=== PATIENT | female | born 1935 | race Caucasian/White ===

== ENCOUNTER 2020-06-10 13:18 | Outpatient (CLI) | payer MEDICARE, SELFPAY | END 2020-06-10 13:19 | disposition home or self-care (01) | LOC: ANHCOVIDVC 13:18 | PROVIDERS: PCP Family Medicine | DX: Z23 Encounter for immunization (principal) | CPT/HCPCS: 0001A; 91300 ==

== ENCOUNTER 2020-07-01 13:08 | Outpatient (CLI) | payer MEDICARE, SELFPAY | END 2020-07-01 13:09 | disposition home or self-care (01) | LOC: ANHCOVIDVC 13:08 | PROVIDERS: PCP Family Medicine | DX: Z23 Encounter for immunization (principal) | CPT/HCPCS: 0002A; 91300 ==

== ENCOUNTER 2023-05-16 11:38 | Inpatient (IN) | payer MEDICARE, SELFPAY ==
[2023-05-16] VITALS (9 sets, daily range): BP systolic 137–161; BP diastolic 78–108; PULSE 77–118; RESP 18–28; TEMP 36.4–36.6; O2SAT 93–100; BMI 18.0
--- NOTE | ~2023-05-16 | CT_ITS ---
EXAMINATION: CT chest abdomen pelvis w con DATE: 05/16/2023 13:48 INDICATION: Elevated liver enzymes TECHNIQUE: Transaxial computed tomographic images of the chest, abdomen, and pelvis were obtained aft er the administration of 100 cc of Omnipaque 350 intravenous contrast. The dose-length product (DLP) was 266.67 mGy-cm. Automated exposure control and iterative reconstruction technique were employed. COMPARISON: 11/25/2010 FINDINGS: CHEST CT: There are small left and pjicf-co-wazoswyr size right pleural effusions with mild passive dependent a telectasis. Although not specifically timed for evaluation of the pulmonary arteries, the pulmonary a rteries appear to be well-opacified. There is smooth interlobular septal thickening in the lung apice s. Cardiomegaly is noted. There is no pneumothorax. There are no pathologically enlarged thoracic lym ph nodes. There is moderate thoracic spondylosis. ABDOMEN/PELVIS CT: The liver, spleen, and adrenal glands are normal. There is chronic mild enlargement of the pancreatic duct and common bile duct and chronic mild distention of the gallbladder.. There is moderate atrophy of the kidneys which contain multiple small cysts. No pathologically enlarged abdominal or pelvic ly mph nodes are identified. No free intraperitoneal gas or evidence of bowel obstruction. There is high attenuation material in multiple segments of large bowel, felt to represent ingested contents rather than contrast extravasation. There is thoracolumbar dextroscoliosis and severe spondylosis. IMPRESSION: 1. Small left and sdbrm-ms-brkbibjq size right pleural effusions with mild passive atelectasis. 2. Cardiomegaly with mild pulmonary edema. 3. No definite acute findings of the abdomen or pelvis. Reviewed, dictated and finalized at location A. OPERATOR SEMICONDUCTOR WAFERS IMPRESSION: 1. Small left and caifo-fw-fkdslrth size right pleural effusions with mild pass cleo atelectasis. 2. Cardiomegaly with mild pulmonary edema. 3. No definite acute findings of the abdomen or pelvis.
--- NOTE | ~2023-05-16 | XR_ITS ---
EXAMINATION: XR chest 1V INDICATION: Tachycardia TECHNIQUE: AP view of the chest is obtained. COMPARISON: None available FINDINGS: There are airspace opacities of the lung bases. Small pleural effusions are present. There is no pneumothorax. The heart size is upper limits of normal for technique. There is calcification of the mitral annulus. IMPRESSION: 1. Bibasilar airspace opacities, consistent with atelectasis versus pneumonia. 2. Small pleural effusions. Reviewed, dictated and finalized at location A. REMOVER
--- NOTE | ~2023-05-16 | CT_ITS ---
EXAMINATION: CT brain wo con INDICATION: Head injury COMPARISON: 02/13/2012 TECHNIQUE: Standard unenhanced head CT. The dose-length product (DLP) was 605.33 mGy-cm. The mA was a djusted according to patient size. Iterative reconstruction technique was employed. FINDINGS: No acute intraparenchymal hemorrhage. No evidence of mass lesion. No evidence of acute infa rction. There is moderate periventricular and subcortical hypodensity probably related to small vesse l ischemic disease. There is moderate prominence of the sulci and ventricles related to cerebral atro phy. Intracranial calcified cerebral atherosclerosis is noted. No extra-axial collections. No mass ef fect or midline shift. The orbits and soft tissues are unremarkable. The visualized sinuses and masto id air cells are well aerated. IMPRESSION: 1. No acute intracranial abnormality. 2. Age related findings. Reviewed, dictated and finalized at location A. PER LOADER OPERATOR
--- NOTE | 2023-05-16 11:43 | ECG_ITS ---
Measurements Intervals [place] Rate: 76 P: 55 OK: 164 QRS: 26 QRSD: 109 T: 105 QT: 403 QTc: 453 Interpretive Statements SINUS RHYTHM WITH FREQUENT SUPRAVENTRICULAR PREMATURE COMPLEXES NONSPECIFIC INTRAVENTRICULAR CONDUCTION DELAY NONSPECIFIC ST AND T-WAVE ABNORMALITY ABNORMAL ECG NO PREVIOUS ECG AVAILABLE FOR COMPARISON Electronically Signed On 05-17-2023 7:24:14 FITNESS TEACHER by Mio Jackson M.D.
--- NOTE | 2023-05-16 11:46 | ED.ARRPALP ---
HPI - Arrhythmia/Palpitations General Chief Complaint: Arrhythmia/Palpitations Stated Complaint: palpatations History of Present Illness HPI narrative: 87-year-old female presenting to emergency department for evaluation of heart palpitations. Patient is scheduled to have follow-up with Cardiology on Wednesday. Patient states she has been have intermittent issues at nighttime when she lays down she feels she is having a rapid heart rate. Patient reports over last 2 nights she has had more severe symptoms and has been very restless. Upon arrival emergency department patient denies any chest pain or shortness of breath. Patient denies any nausea vomiting or diarrhea. Patient denies any recent illnesses and denies any pain with urination. Related Data Home Medications Medication Instructions Recorded Confirmed timolol maleate 0.5 % eye drops 1 drp ophthalmic (eye) BID 08/12/20 05/16/23 loperamide 2 mg tablet 2 mg PO Q6H PRN Diarrhea 04/16/23 05/16/23 (Anti-Diarrheal (loperamide)) acetaminophen 500 mg tablet 500 mg PO Q6H PRN pain 05/16/23 05/16/23 lisinopril 10 1 tablet PO DAILY 05/16/23 05/16/23 mg-hydrochlorothiazide 12.5 mg tablet multivitamin with minerals-folic 1 tablet PO DAILY 05/16/23 05/16/23 acid 0.4 mg tablet Allergies Allergy/AdvReac Type Severity Reaction Status Date / Time No Known Allergies Allergy Verified 04/16/23 13:14 Review of Systems Review of Systems: All systems reviewed & are unremarkable except as noted in HPI and below PMFSH Family History Family History Mother Diabetes mellitus, Onset Age: 72 Hypertension, Onset Age: 72 Family history of cardiovascular disease, Onset Age: 72 Father Hypertension, Onset Age: 92 Family history of Parkinson's disease, Onset Age: 92 Social History Social History (Updated 04/16/23 @ 13:23 by Rosi Castrejon MA) Smoking packs per day: 1.5 Smoking cigarettes per day: 30.0 Years smoked: 13 Smoking pack-years: 19.50 Smoking status: Former smoker Smoking end date: 04/12/1966 Alcohol intake: never Substance use: never Substance use type: does not use Do You Feel Safe in your Home?: Yes Lack of Transportation: No Lack of Food: Never True Current Housing: I Have Housing Concerned About Future Housing: No Difficulty Paying Gas/Electric Bills: No Difficulty Paying for Meds: No Currently Unemployed: No Education: High School Diploma/GED Difficulty w/ Childcare or Family Care: No Living arrangements: with family Spiritual care concerns: No Exam Narrative: APPEARANCE: Well appearing, no pain, no distress, well-nourished. HEAD: normocephalic, atraumatic. EYES: PERRLA/EOMI, conjunctivae clear. NOSE: Normal no drainage NECK: Supple. No adenopathy, no masses. RESPIRATORY: Airway patent, respirations nonlabored. Clear to auscultation bilaterally, no rales, rhonchi, wheezing. CARDIOVASCULAR: Regular rate and rhythm without murmurs rubs or gallops. ABDOMINAL: Soft, nontender, nondistended, normal bowel sounds MUSCULOSKELETAL: Moves all extremities. Strength/ROM intact, No edema, No calf tenderness. NEURO: Alert. Cranial nerves II through XII intact. Grossly intact SKIN: Warm, dry. Normal Color Course Course Emergency Course: 87-year-old female presenting emergency department for evaluation of feeling restless at night and difficulty sleeping. Patient denies any chest pain. Patient was afebrile with no leukocytosis and hemoglobin of 11.8. Patient's initial troponin was elevated at 0.061. Patient's BNP was greater than 30,000. Patient was negative for influenza RSV and for COVID. Patient did report a head injury last week and had CT was negative. Chest x-ray showed bibasilar airspace opacities and some small pleural effusions. CT chest abdomen pelvis was ordered and does show small left and small to moderate righ
[2023-05-16 12:05] LABS: Basophils Absolute Auto 0.1 K/mm3 (0.0-0.1); Basophils Percent Auto 1.3 % (0.2-1.2); Eosinophils Absolute Auto 0.1 K/mm3 (0-0.3); Eosinophils Percent Auto 0.9 % (0-4.4); Hematocrit 37.5 % (37.0-47.0); Hemoglobin 11.8 g/dL (12.0-15.0); Immature Granulocyte Absolute 0.02 K/mm3 (0.00-0.031); Immature Granulocyte Percent A 0.2 % (0-0.5); Lymphocytes Absolute Auto 1.27 K/mm3 (0.9-3.2); Lymphocytes Percent Auto 13.7 % (18.3-44.2); Mean Corpuscular HGB Conc 31.5 g/dl (32-36); Mean Corpuscular Hemoglobin 31.1 pg (26-34); Mean Corpuscular Volume 98.9 fl (80-100); Mean Platelet Volume 9.8 fl (7.4-10.4); Monocytes Absolute Auto 0.8 K/mm3 (0.1-0.6); Monocytes Percent Auto 8.6 % (2.6-8.5); Neutrophils Percent Auto 75.3 % (45.5-73.1); Platelet Count Result 253 k/mm3 (150-375); Red Blood Count 3.79 M/mm3 (4.2-5.4); Red Cell Distribution Width 15.2 % (11.5-14.5); White Blood Count 9.3 K/mm3 (4.5-10.0)
[2023-05-16 12:16] LABS: INR 1.1; Prothrombin Time 14.6 Seconds (11.1-14.7)
[2023-05-16 12:17] LABS: Partial Thromboplastin Time 29.1 SECONDS (22.3-36.8)
[2023-05-16 12:28] LABS: NT Pro B Type Natriuretic Pept > 30000 pg/mL (19.9-100)
[2023-05-16 12:35] LABS: Alanine Aminotransferase 75 U/L (6-35); Albumin Level 4.3 g/dL (3.5-5.1); Alkaline Phosphatase 151 U/L (38-126); Anion Gap 12 mmol/L (8-16); Aspartate Amino Transferase 77 U/L (14-36); Bilirubin,Total 1.1 mg/dL (0.2-1.3); Blood Urea Nitrogen 33 mg/dL (7-17); Calcium 9.4 mg/dL (8.4-10.2); Carbon Dioxide 23 mmol/L (22-30); Chloride 107 mmol/L (98-107); Estimated Glomerular Filt Rate 52; Glucose 121 mg/dL (65-110); Magnesium 2.4 mg/dL (1.6-2.3); Potassium 3.9 mmol/L (3.4-5.0); Sodium 142 mmol/L (137-145)
[2023-05-16 12:43] LABS: Influenza A QL RT-PCR Negative (Negative); Influenza B QL RT-PCR Negative (Negative); RSV RNA, RT-PCR Negative (Negative); SARS-CoV-2 RNA PCR Negative (Negative)
[2023-05-16 12:46] LABS: Troponin I 0.061 ng/mL (0.000-0.034)
--- NOTE | 2023-05-16 12:50 | PC.NURSE ---
Pt requesting water. approved.
[2023-05-16] MEDS: FUROSEMIDE INJ 40 MG/4 ML VIAL IV PUSH (15:27)
--- NOTE | 2023-05-16 15:29 | ECG_ITS ---
Measurements Intervals [place] Rate: 103 P: 0 [place]: 160 QRS: 38 QRSD: 110 T: -26 QT: 364 QTc: 479 Interpretive Statements SINUS TACHYCARDIA MODERATE INTRAVENTRICULAR CONDUCTION DELAY [105+ ms QRS DURATION, 80+ ms Q/S IN V1/V2, NO Q AND 60+ ms R IN I/aVL/V5/V6] ST DEVIATION AND MODERATE T-WAVE ABNORMALITY, CONSIDER LATERAL ISCHEMIA [-0.1+ mV T WAVE IN I/aVL/V5/V6] ABNORMAL ECG COMPARED TO ECG 05/16/2023 11:46:25 HEART RATE IS INCREASED, NO OTHER CHANGE Electronically Signed On 05-17-2023 7:31:39 CALL CENTER AGENT by Mio Jackson M.D.
[2023-05-16 15:47] LABS: Troponin I 0.099 ng/mL (0.000-0.034)
--- NOTE | 2023-05-16 16:18 | ADMGEN ---
This patient, Celi Robison, was admitted to IMU Room 200-01. Patient/family oriented to hospital policies and general routines including ID bracelet, bed and alarms, visiting hours, pain management, procedures, bathroom and other care routines, personal items, smoking policy, room service/diet, and visiting hours. Information on how to activate the Rapid Response Team has been discussed. Patient/Family are encouraged to report perceived risks to care and to ask questions if they do not understand what they are told or what they should do.
--- NOTE | 2023-05-16 18:16 | PM.IMHP ---
H&P: HPI History of Present Illness Date/Time: 05/16/23 18:16 Chief Complaint: Palpitations Narrative: 87 y/o F presents here with palpitations with PMH anxiety, glaucoma, no formal diagnosis of IBS but has chronic diarrhea, CKD, HTN, and HLD. Patient presented here with palpitations that have been intermittent/worse over the last 2 days. Has been present for the past few months. Exacerbated by laying flat. Associated restlessness and shortness of breath with palpitations. Denies any recent illnesses, N/V/D, no dysuria, no cough, syncope, CP or SOB. Does report chronic diarrhea, takes loperamide p.r.n. b.i.d. Patient denies any new or increased leg swelling/edema. Only new medication is Cymbalta, patient was previously experiencing the palpitations prior to medication initiation. Denies any excessive alcohol or caffeine intake. Initial VS at presentation: 97.6 F, HR 98, RR 20, 93% on RA, 161/108. ED workup showed no leukocytosis, mild anemia with a hemoglobin of 11.8, creatinine 1.0 with BUN of 33 and GFR of 52, magnesium 2.4, LFTs mildly elevated, alk-phos 151, troponin 0.061, BNP >30,000, TSH 2.4, and viral panel negative for COVID/flu/RSV. CXR showed bibasilar airspace opacities and small pleural effusions. Head CT showed no acute intracranial abnormalities. CT of the abdomen pelvis showed small left and small to moderate right pleural effusions, cardiomegaly with mild pulmonary edema, no definitive acute findings in the abdomen/pelvis. EKG showed sinus rhythm with frequent supraventricular premature complexes, ST deviation, moderate T-wave abnormality. Review of Systems Review of Systems: All systems reviewed & are unremarkable except as noted in HPI and below [facility] Past Medical History Medical History (Updated 05/16/23 @ 20:23 by Camille Oneill APRN) Anxiety Chronic diarrhea Chronic kidney disease (CKD), stage III (moderate) Former smoker Glaucoma Hammertoe, bilateral Hyperlipidemia Hypertension Presence of intraocular lens prism lens Surgical History Surgical History History of cataract extraction History of dilation and curettage x2 History of lumbar surgery spinal stenosis correction History of tonsillectomy Family History Family History Mother Diabetes mellitus, Onset Age: 72 Hypertension, Onset Age: 72 Family history of cardiovascular disease, Onset Age: 72 Father Hypertension, Onset Age: 92 Family history of Parkinson's disease, Onset Age: 92 Social History Social History Smoking packs per day: 1.5 Smoking cigarettes per day: 30.0 Years smoked: 13 Smoking pack-years: 19.50 Smoking status: Former smoker Smoking end date: 04/12/1966 Alcohol intake: never Substance use: never Substance use type: does not use Do You Feel Safe in your Home?: Yes Lack of Transportation: No Lack of Food: Never True Current Housing: I Have Housing Concerned About Future Housing: No Difficulty Paying Gas/Electric Bills: No Difficulty Paying for Meds: No Currently Unemployed: No Education: High School Diploma/GED Difficulty w/ Childcare or Family Care: No Living arrangements: with family Spiritual care concerns: No Meds Home Medications and Allergies Home Medications Medication Instructions Recorded Confirmed Type timolol maleate 0.5 % eye drops 1 drp ophthalmic (eye) BID 08/12/20 05/16/23 History loperamide 2 mg tablet 2 mg PO Q6H PRN Diarrhea 04/16/23 05/16/23 History (Anti-Diarrheal (loperamide)) duloxetine 30 mg capsule,delayed 30 mg PO DAILY #90 caps 05/10/23 05/16/23 Rx release (Cymbalta) acetaminophen 500 mg tablet 500 mg PO Q6H PRN pain 05/16/23 05/16/23 History lisinopril 10 1 tablet PO DAILY 05/16/23 05/16/23 History mg-hydrochlorothiazide 12.5 mg
[2023-05-16 20:52] LABS: Iron 84 ug/dL (37-170)
[2023-05-16 21:01] LABS: Percent Iron Saturation 32 % (20-50)
[2023-05-16 21:08] LABS: Troponin I 0.158 ng/mL (0.000-0.034)
[2023-05-16 21:10] LABS: Vitamin D 25 Hydroxy 38.1 ng/mL
[2023-05-16 22:03] LABS: Folic Acid > 20.0 ng/mL (2.76->20)
[2023-05-16] MEDS: MELATONIN 3 MG TABLET PO (22:12)
[2023-05-16] MEDS: METOPROLOL TARTRATE 12.5 MG TABLET PO (22:13)
[2023-05-16] MEDS: TIMOLOL MALEATE 0.5% OP SOLN 5 ML BOTTLE 1 DROP EACH EYE (22:14)
[2023-05-17] VITALS (18 sets, daily range): BP systolic 118–144; BP diastolic 59–91; PULSE 65–106; RESP 16–28; TEMP 36.1–37.4; O2SAT 92–100; BMI 17.6
--- NOTE | 2023-05-17 | ECHO_ITS ---
Patient Info Name: Celi Robison Age: 87 years : 1935 Gender: Female Ht: 59 in Wt: 89 lbs BSA: 1.29 m2 HR: 72 bpm BP: 127 / 83 mmHg Heart Rhythm: Sinus Rhythm Technical Quality: Fair Exam Date: 05/17/2023 10:24 AM Exam Location: Echo Lab Exam Room: 200 Patient Status: Inpatient Admit Date: 05/16/2023 Staff Ordering Physician: Camille Oneill APRN Knife Operator: Gissell Lundberg RDCS Attending Provider: Adan Hamilton MD Referring Physician: Mai OG; Exam Type: CA echo dop color flow w con Study Info Indications - elevated bnp /pulm edema / cardiomyopathy Complete two-dimensional, color flow and Doppler transthoracic echocardiogram is performed with contrast to opacify the left ventricle and to improve the deliniation of the left ventricle endocardial borders. Summary 1. Definity contrast used to improve exam quality. 2. Moderate left ventricular enlargement with severe global hypokinesia. 3. Dilated left atrium. 4. Calcified mitral valve annulus with xdio-ch-bjginyjl MR. 5. Small amount of aortic regurgitation. 6. Tricuspid regurgitant velocity indicates evidence of severely elevated pulmonary artery pressure. Left Ventricle Left ventricular chamber dimension is moderately enlarged. Left ventricular systolic function is severely reduced, estimated at 20-25%. The left ventricular diastolic function is grade I diastolic dysfunction. Right Ventricle Right ventricular chamber dimension is normal. Left Atria Left atrial chamber dimension is severely enlarged. Right Atria Right atrial chamber dimension is normal. Aortic Valve The aortic valve is trileaflet. There is mild aortic valve sclerosis. There is mild aortic valve regurgitation. Pulmonic Valve The pulmonic valve is normal. There is mild pulmonic regurgitation. Mitral Valve The mitral valve has normal leaflets. There is mild to moderate mitral valve regurgitation. The mitral valve annulus is moderately calcified. Tricuspid Valve The tricuspid valve leaflets are normal. There is mild tricuspid valve regurgitation. Severe pulmonary hypertension, estimated pulmonary arterial systolic pressure is 71 mmHg. Pericardium/Pleural The pericardium appears normal. Aorta The aortic root size at the sinus of Valsalva is normal. Left Ventricular Outflow Tract Name Value Normal LVOT 2D LVOT Diameter 2.01 cm LVOT Doppler LVOT Peak Gradient 3 mmHg LVOT Mean Gradient 1 mmHg LVOT VTI 16.05 cm LVOT VTI/AV VTI Ratio 0.74 LVOT Stroke Volume 51.02 ml LVOT CO 10.87 l/min LVOT CI 8.41 L/min/m2 Pulmonic Valve Name Value Normal PV Doppler PV Peak Gradient 1 mmHg Mitral Valve Name
[2023-05-17 04:41] LABS: Hematocrit 35.2 % (37.0-47.0); Hemoglobin 11.3 g/dL (12.0-15.0); Mean Corpuscular HGB Conc 32.1 g/dl (32-36); Mean Corpuscular Hemoglobin 30.5 pg (26-34); Mean Corpuscular Volume 95.1 fl (80-100); Mean Platelet Volume 10.1 fl (7.4-10.4); Platelet Count Result 238 k/mm3 (150-375); Red Cell Distribution Width 15.1 % (11.5-14.5); White Blood Count 7.7 K/mm3 (4.5-10.0)
[2023-05-17 04:55] LABS: Alanine Aminotransferase 51 U/L (6-35); Albumin Level 3.7 g/dL (3.5-5.1); Alkaline Phosphatase 135 U/L (38-126); Anion Gap 11 mmol/L (8-16); Aspartate Amino Transferase 42 U/L (14-36); Bilirubin,Total 1.1 mg/dL (0.2-1.3); Blood Urea Nitrogen 37 mg/dL (7-17); Calcium 9.2 mg/dL (8.4-10.2); Carbon Dioxide 23 mmol/L (22-30); Chloride 102 mmol/L (98-107); Estimated Glomerular Filt Rate 47; Glucose 111 mg/dL (65-110); Magnesium 2.3 mg/dL (1.6-2.3); Potassium 3.4 mmol/L (3.4-5.0); Sodium 136 mmol/L (137-145)
[2023-05-17 05:35] LABS: Appearance Urine Clear (Clear); Bacteria Urine None Seen /hpf; Bilirubin Urine Negative (Negative); Blood Urine Negative (Negative); Color Urine Yellow (Yellow); Glucose Urine UA Negative (Negative); Ketones Urine Trace mg/dL (Negative); Leukocyte Esterase Ur Negative LEU/UL (Negative); Nitrate Urine Negative (Negative); Protein Urine Trace mg/dL (Negative); RBC Urine 0-2 /hpf (0-2); Specific Grav Ur 1.026 (1.001-1.035); Squamous Epithelial Cell Urine None seen /hpf (Few); Urobilinogen Urine 0.2 mg/dL (<2.0); WBC Urine 0-5 /hpf; pH Urine 5.5 (5.0-9.0)
[2023-05-17 05:36] LABS: Add Urine Microscopic? YES
[2023-05-17] MEDS: THERAPEUTIC MULTIVITAMINS/MINERALS TAB (*BKC) 1 TABLET PO (09:26)
[2023-05-17] MEDS: DULoxetine HCL 30 MG CAPSULE.DR PO (09:26)
[2023-05-17] MEDS: hydroCHLOROthiazide 12.5 MG CAPSULE PO (09:27)
[2023-05-17] MEDS: METOPROLOL TARTRATE 12.5 MG TABLET PO ×2 (09:27→20:52)
[2023-05-17] MEDS: lisinopriL 10 MG TABLET PO (09:27)
[2023-05-17] MEDS: ENOXAPARIN 30 MG/0.3 ML SYRINGE SUB-Q (09:27)
[2023-05-17] MEDS: TIMOLOL MALEATE 0.5% OP SOLN 5 ML BOTTLE 1 DROP EACH EYE ×2 (09:45→20:53)
[2023-05-17] MEDS: PERFLUTREN LIPID MICROSPHERES 1.5 ML VIAL DILUTED TO 10 ML TOTAL VOLUME IV PUSH (10:50)
--- NOTE | 2023-05-17 12:27 | IVDEFINITY ---
Prior to administration of IV Definity the patient was educated on the risks and benefits of the imaging enhancing agent including potential adverse side effects. The patient verbalized understanding. Allergies were verified. No exclusion criteria were identified and at least one of the following inclusion criteria were met: 1) physician request, 2) patient technically difficult to image (per the [place] [employer]chocardi[employer] guidelines of two or more segments not discernable within the apical view), or 3) questionable left ventricular function. ?
--- NOTE | 2023-05-17 13:43 | PM.CNCAR ---
Assessment and Plan Assessment and plan (1) CHF (congestive heart failure): Code(s): I50.9 - Heart failure, unspecified Status: Acute Assessment and Plan: Presents with 3 months of progressive dyspnea on exertion and orthopnea. Workup concerning for congestive heart failure with NTpro BNP >56123, CXR with pulmonary edema. She rec'd one dose of IV furosemide in the ED. Does not look significantly overloaded, will continue with p.o. furosemide Strict I&O CHF counseling supplemental O2 as needed Echo is pending. Further recommendations after review of this study. (2) Elevated troponin: Code(s): R79.89 - Other specified abnormal findings of blood chemistry Status: Acute Assessment and Plan: Troponin levels elevated at 0.061, 0.099, and 0.158. She denies any chest pain. Does not have many risk factors for CAD. Probably elevated secondary to CHF. Can pursue outpatient stress testing. (3) Shortness of breath on exertion: Code(s): R06.02 - Shortness of breath Status: Acute Assessment and Plan: Secondary to #1 (4) Hypertension: Code(s): I10 - Essential (primary) hypertension Status: Chronic Assessment and Plan: Currently at goal. History of Present Illness History of Present Illness Consult date/time: 05/17/23 13:43 Requesting physician: Camille Oneill APRN Consult reason: Other (Elevted BNP, pulmonary edema, cardiomegaly) Reason For Visit: CHF/Orthopnea/Pleural Effusion Narrative: Celi Robison is an 87 year old female with a history of glaucoma, hypertension, and osteoarthritis. This is a patient to comes to the hospital with a chief complaint of palpitations. She has been experiencing intermittent palpitations over the past several months. She states that the palpitations are more bothersome when she lays down. For about 3 months, she has also been experiencing dyspnea with exertion and orthopnea. Her telemetry demonstrates sinus rhythm with frequent PAC's. She states that when EMS connected her to their monitor she was told she was in atrial fibrillation. However, no atrial arrhythmias seen here on telemetry or ECG. She denies feeling any palpitations since hospital admission. She is currently free of any complaints and is lying comfortably in bed. Review of Systems Review of Systems: All systems reviewed & are unremarkable except as noted in HPI and below PMFSH Past Medical History Medical History Anxiety Chronic diarrhea Chronic kidney disease (CKD), stage III (moderate) Former smoker Glaucoma Hammertoe, bilateral Hyperlipidemia Hypertension Presence of intraocular lens prism lens Surgical History Surgical History History of cataract extraction History of dilation and curettage x2 History of lumbar surgery spinal stenosis correction History of tonsillectomy Family History Family History Mother Diabetes mellitus, Onset Age: 72 Hypertension, Onset Age: 72 Family history of cardiovascular disease, Onset Age: 72 Father Hypertension, Onset Age: 92 Family history of Parkinson's disease, Onset Age: 92 Social History Social History Smoking packs per day: 1.5 Smoking cigarettes per day: 30.0 Years smoked: 13 Smoking pack-years: 19.50 Smoking status: Former smoker Smoking end date: 04/12/1966 Alcohol intake: never Substance use: never Substance use type: does not use Do You Feel Safe in your Home?: Yes Lack of Transportation: No Lack of Food: Never True Current Housing: I Have Housing Concerned About Future Housing: No Difficulty Paying Gas/Electric Bills: No Difficulty Paying for Meds: No Currently Unemployed: No Education: [employer]
--- NOTE | 2023-05-17 16:08 | PM.IMPN ---
Progress Note: A&P Assessment and Plan (1) Palpitations: Code(s): R00.2 - Palpitations Status: Acute Assessment and Plan: -EKG, initial: Sinus rhythm with frequent supraventricular premature complexes, ST deviation and moderate T-wave abnormality, consider lateral ischemia. No previous EKG available for comparison. Awaiting formal read. -EKG, repeat: Sinus tachycardia with a rate of 103, moderate intraventricular conduction delay, ST deviation and moderate T-wave abnormality consider lateral ischemia, when compared to EKG done previously today sinus tachycardia and intraventricular conduction delay now present. Awaiting formal read. -Troponin: 0.061 -> 0.099 -> 0.158. No active CP, suspect some level of potential HF and/or demand ischemia secondary to frequent PVCs. -TSH 2.4 -cardiology consulted, awaiting recs -started on metoprolol 12.5 mg BID -tele monitoring (2) Orthopnea: Code(s): R06.01 - Orthopnea Status: Acute Assessment and Plan: -CXR: Bibasilar airspace opacities, consistent with atelectasis versus pneumonia. Small pleural effusions. -CT abd/pelvis: Small left and brmrz-nh-tsqljqdl size right pleural effusions with mild passive atelectasis. Cardiomegaly with mild pulmonary edema. Moderate atrophy of the kidneys. There is high attenuation material in multiple segments of large bowel, felt to represent ingested contents rather than contrast extravasation.?No definite acute findings of the abdomen or pelvis. -BNP: >30,000 and exam shows crackles in L lung base -given Lasix 40 IVP x1, hold on further diuresis until echo results -ECHO ordered -cardiology consulted -monitor I&Os and daily weights (3) Hypertension: Code(s): I10 - Essential (primary) hypertension Status: Chronic Assessment and Plan: -chronic,stable -continue home medications: lisinopril and hydrochlorothiazide -monitor (4) Chronic kidney disease (CKD), stage III (moderate): Code(s): N18.30 - Chronic kidney disease, stage 3 unspecified Status: Chronic Assessment and Plan: do not have baseline for comparison creatinine 1.10, GFR 47, BUN 37 today trend and monitor (5) Anemia: Code(s): D64.9 - Anemia, unspecified Status: Acute Assessment and Plan: -no previous hx -hemoglobin 11.3 today -anemia workup: TSH normal. - ferritin, iron, TIBC normal - B12, folic acid normal Plan Home Meds/Chronic Conditions -chronic diarrhea: Continue loperamide p.r.n., add vitamin-D to a.m. labs. -Anxiety: Continue Cymbalta. adding melatonin for sleep. -OTC/supplements: Continue multivitamin -glaucoma: Continue timolol drops Diet: Heart healthy GI Prophylaxis: Not indicated DVT Prophylaxis: SCDs, Lovenox Lines: pIV Code Status: Full Code Subjective Date/time seen: 05/17/23 16:08 Interval history: Patient sitting up in bed this morning, very pleasant. She reports she is feeling much better than when she came in. Denies palpitations, admittedly a worrier. Her iron panel was normal. ECHO ordered and cardiology consulted. She reports she was supposed to have outpatient stress test tomorrow. Her VS have remained stable. Will await further eval and recs from cardiology. Review of Systems Review of Systems: All systems reviewed & are unremarkable except as noted in HPI and below Exam Const: General: comfortable and no acute distress Other: Female, , nontoxic appearance HENMT: Face/Nose/Sinus: Normal nares present Mouth: Yes moist mucous membranes Eyes: Pupils: Equal, round and reactive pupils present EOM: EOMs intact bilaterally Neck: Neck: supple Thyroid: thyroid normal Resp: Effort & Inspection: normal respiratory effort Cardio: Rate: regular rate Rhythm: regular rhythm GI: GI Palp: Yes Soft to palpation Auscultation: normal bowel sounds Skin: General skin exam: normal color and no rashes or lesions no
[2023-05-17] MEDS: MELATONIN 3 MG TABLET PO (20:53)
[2023-05-18] VITALS (19 sets, daily range): BP systolic 97–135; BP diastolic 51–83; PULSE 49–102; RESP 16–20; TEMP 36.2–36.6; O2SAT 93–99
[2023-05-18 04:57] LABS: Basophils Absolute Auto 0.1 K/mm3 (0.0-0.1); Basophils Percent Auto 1.1 % (0.2-1.2); Eosinophils Absolute Auto 0.2 K/mm3 (0-0.3); Eosinophils Percent Auto 2.7 % (0-4.4); Hematocrit 33.7 % (37.0-47.0); Immature Granulocyte Absolute 0.03 K/mm3 (0.00-0.031); Immature Granulocyte Percent A 0.4 % (0-0.5); Lymphocytes Absolute Auto 1.09 K/mm3 (0.9-3.2); Lymphocytes Percent Auto 13.2 % (18.3-44.2); Mean Corpuscular HGB Conc 32.6 g/dl (32-36); Mean Corpuscular Volume 94.9 fl (80-100); Mean Platelet Volume 9.8 fl (7.4-10.4); Monocytes Absolute Auto 0.8 K/mm3 (0.1-0.6); Monocytes Percent Auto 9.8 % (2.6-8.5); Neutrophils Percent Auto 72.8 % (45.5-73.1); Platelet Count Result 214 k/mm3 (150-375); Red Blood Count 3.55 M/mm3 (4.2-5.4); Red Cell Distribution Width 15.1 % (11.5-14.5); White Blood Count 8.3 K/mm3 (4.5-10.0)
[2023-05-18 05:13] LABS: Anion Gap 8 mmol/L (8-16); Blood Urea Nitrogen 45 mg/dL (7-17); Calcium 8.8 mg/dL (8.4-10.2); Carbon Dioxide 25 mmol/L (22-30); Chloride 103 mmol/L (98-107); Estimated Glomerular Filt Rate 42; Glucose 104 mg/dL (65-110); Potassium 3.2 mmol/L (3.4-5.0); Sodium 136 mmol/L (137-145)
--- NOTE | 2023-05-18 08:43 | PM.PNCARD ---
Progress Note: A&P Assessment and Plan (1) CHF (congestive heart failure): Code(s): I50.9 - Heart failure, unspecified Status: Acute Assessment and Plan: Presents with 3 months of progressive dyspnea on exertion and orthopnea. Workup concerning for congestive heart failure with NTpro BNP >58465, CXR with pulmonary edema. Echo showed severely reduced LV systolic function, EF 20-25%. She also has severe pHTN. These are new diagnoses. Discussed echo results and plan for management including coronary angiogram to rule out ischemic disease. Initiate standard guideline directed medical therapy with Entresto (start 2/8 a.m. to allow for COLE washout), spironolactone, Toprol XL, and jardiance Strict I&O CHF counseling NPO after midnight for coronary angiogram tomorrow (2) Elevated troponin: Code(s): R79.89 - Other specified abnormal findings of blood chemistry Status: Acute Assessment and Plan: Troponin levels elevated at 0.061, 0.099, and 0.158. She denies any chest pain. Does not have many risk factors for CAD. Probably elevated secondary to CHF. As above, plan for [facility] tomorrow. (3) Shortness of breath on exertion: Code(s): R06.02 - Shortness of breath Status: Acute Assessment and Plan: Secondary to #1 (4) Hypertension: Code(s): I10 - Essential (primary) hypertension Status: Chronic Assessment and Plan: Currently at goal. Subjective Date/time seen: 05/18/23 08:43 Interval history: Cardiology follow-up for CHF Patient is feeling better today. She states that she was able to sleep last night while lying nearly flat. She does not have any shortness of breath, chest pain, palpitations. Review of Systems Review of Systems: All systems reviewed & are unremarkable except as noted in HPI and below Exam Const: General: comfortable, no acute distress, alert and awake Orientation/consciousness: patient oriented x3 Other: Petite and somewhat frail-appearing woman HENMT: Head: normal to inspection Eyes: General: appearance normal, both eyes and all related structures Pupils: Equal, round and reactive pupils present Neck: Neck: normal visual inspection, supple and no JVD Carotids: normal carotid upstroke Resp: Effort & Inspection: normal respiratory effort Auscultation: clear to auscultation bilaterally and crackles Cardio: Rate: regular rate Rhythm: regular rhythm and abnormal rhythm with ectopic beats Heart sounds: S1 normal heart sound present, S2 normal heart sound present and no murmurs GI: Auscultation: normal bowel sounds Skin: General skin exam: normal color Neuro: General: patient oriented x3 Cranial nerves: Yes Equal, round and reactive pupils present Extrem: General: normal to inspection Other: no edema Psych: Appearance: grossly normal Mental Status: mental status grossly normal Objective Data Vital Signs Vital Signs: Vital Signs - 24 hr 05/17/23 08:55 05/17/23 09:27 05/17/23 10:00 Temperature Pulse Rate 72 72 Respiratory Rate Blood Pressure Pulse Oximetry 92 Oxygen Delivery Room Air 05/17/23 11:50 05/17/23 15:49 05/17/23 12:00 Temperature 37.4 C 36.8 C Pulse Rate 78 73 102 H Respiratory Rate 16 20 Blood Pressure 141/91 H 118/67 Pulse Oximetry 96 95 Oxygen Delivery 05/17/23 14:00 05/17/23 16:00 05/17/23 18:00 Temperature Pulse Rate 74 106 H 89 Respiratory Rate Blood Pressure Pulse Oximetry Oxygen Delivery 05/17/23 20:00 05/17/23 20:52 05/17/23 20:00 Temperature 36.8 C Pulse Rate 78 99 93 Respiratory Rate 20 Blood Pressure 129/91 H Pulse Oximetry 100 Oxygen Delivery 05/17/23 22:00 05/18/23 00:00 05/18/23 00:00 Temperature 36.4 C Pulse Rate 65 95 80 Respiratory Rate 20 Blood Pressure 97/51 L Pulse Oximetry 94 Oxygen Delivery 05/18/23 02:00 05/18/23 04:00 05/18/23 05:16 Temperature 36.2
--- NOTE | 2023-05-18 08:48 | PM.IMPN ---
Progress Note: A&P Assessment and Plan (1) Palpitations: Code(s): R00.2 - Palpitations Status: Acute Assessment and Plan: -EKG, initial: Sinus rhythm with frequent supraventricular premature complexes, ST deviation and moderate T-wave abnormality, consider lateral ischemia. No previous EKG available for comparison. -EKG, repeat: Sinus tachycardia with a rate of 103, moderate intraventricular conduction delay, ST deviation and moderate T-wave abnormality consider lateral ischemia, when compared to EKG done previously today sinus tachycardia and intraventricular conduction delay now present. -Troponin: 0.061 -> 0.099 -> 0.158. No active CP, suspect some level of potential HF and/or demand ischemia secondary to frequent PVCs. -TSH 2.4 -cardiology consulted -started on metoprolol 12.5 mg BID -continue tele monitoring (2) CHF (congestive heart failure): Code(s): I50.9 - Heart failure, unspecified Status: Acute Assessment and Plan: - echo showing severely reduced systolic dysfunction with an EF of 20-25%, severe pulmonary hypertension, and grade 1 diastolic dysfunction. -Cardiology following -NPO after MN for cardiac catheterization -She will be started on spironolactone, Toprol XL, Jardiance, and Entresto. - Will likely need cardiac rehab on discharge (3) Pulmonary hypertension: Code(s): I27.20 - Pulmonary hypertension, unspecified Status: Acute Assessment and Plan: - echo showing severely reduced systolic dysfunction with an EF of 20-25%, severe pulmonary hypertension, and grade 1 diastolic dysfunction. -Cardiology following - Continue Lasix 40 mg daily - Started on Spironolactone (4) Orthopnea: Code(s): R06.01 - Orthopnea Status: Acute Assessment and Plan: -CXR: Bibasilar airspace opacities, consistent with atelectasis versus pneumonia. Small pleural effusions. -CT abd/pelvis: Small left and yekqn-tu-ugyvkdee size right pleural effusions with mild passive atelectasis. Cardiomegaly with mild pulmonary edema. Moderate atrophy of the kidneys. There is high attenuation material in multiple segments of large bowel, felt to represent ingested contents rather than contrast extravasation.?No definite acute findings of the abdomen or pelvis. -Initial BNP: >30,000 and exam shows crackles in L lung base -given Lasix 40 IVP x1 in ER -started on oral Lasix BID -ECHO showing severely reduced systolic dysfunction with an EF of 20-25%, severe pulmonary hypertension, and grade 1 diastolic dysfunction. -cardiology following -monitor I&Os and daily weights (5) Hypertension: Code(s): I10 - Essential (primary) hypertension Status: Chronic Assessment and Plan: -chronic,stable -continue home medications: lisinopril and hydrochlorothiazide -monitor (6) Chronic kidney disease (CKD), stage III (moderate): Code(s): N18.30 - Chronic kidney disease, stage 3 unspecified Status: Chronic Assessment and Plan: do not have baseline for comparison creatinine 1.20, GFR 42, BUN 45 today trend and monitor (7) Anemia: Code(s): D64.9 - Anemia, unspecified Status: Acute Assessment and Plan: -no previous hx -hemoglobin 11.0 today -anemia workup: TSH normal. - ferritin, iron, TIBC normal - B12, folic acid normal -Continue to monitor. Time Spent With Patient Time with patient: 25 - 35 minutes Subjective Date/time seen: 05/18/23 08:48 Interval history: This is an 87 year old female who presented to the hospital on 05/16/23 with complaints of palpitations. Work up in the hospital included a Head CT was negative for any acute findings. Chest x-ray shown bilateral airspace opacities, small pleural effusions. Chest/abdomen/Pelvis CT shown small left and small-moderate size right pleural effusions with mild passive atelectasis, mild pulmonary edema. Echo revealing LV systolic function severely reduced with a
[2023-05-18] MEDS: FUROSEMIDE 40 MG TABLET PO (09:22)
[2023-05-18] MEDS: SPIRONOLACTONE 12.5 MG TABLET PO (09:22)
[2023-05-18] MEDS: ENOXAPARIN 30 MG/0.3 ML SYRINGE SUB-Q (09:22)
[2023-05-18] MEDS: THERAPEUTIC MULTIVITAMINS/MINERALS TAB (*BKC) 1 TABLET PO (09:23)
[2023-05-18] MEDS: TIMOLOL MALEATE 0.5% OP SOLN 5 ML BOTTLE 1 DROP EACH EYE ×2 (09:24→21:12)
[2023-05-18] MEDS: METOPROLOL SUCCINATE EXT REL 12.5 MG TABCR PO (09:25)
[2023-05-18] MEDS: DULoxetine HCL 30 MG CAPSULE.DR PO (09:25)
[2023-05-18] MEDS: POTASSIUM CHLORIDE 20 MEQ ER TABLET 40 MEQ PO (10:19)
[2023-05-18] MEDS: EMPAGLIFLOZIN 10 MG TABLET PO (10:19)
[2023-05-18] MEDS: MELATONIN 3 MG TABLET PO (21:12)
[2023-05-19] VITALS (30 sets, daily range): BP systolic 118–149; BP diastolic 60–93; PULSE 60–101; RESP 8–21; TEMP 36.2–36.7; O2SAT 96–100
--- NOTE | 2023-05-19 07:18 | PM.IMPN ---
Progress Note: A&P Assessment and Plan (1) Palpitations: Code(s): R00.2 - Palpitations Status: Acute Assessment and Plan: -EKG, initial: Sinus rhythm with frequent supraventricular premature complexes, ST deviation and moderate T-wave abnormality, consider lateral ischemia. No previous EKG available for comparison. -EKG, repeat: Sinus tachycardia with a rate of 103, moderate intraventricular conduction delay, ST deviation and moderate T-wave abnormality consider lateral ischemia, when compared to EKG done previously today sinus tachycardia and intraventricular conduction delay now present. -Troponin: 0.061 -> 0.099 -> 0.158. No active CP, suspect some level of potential HF and/or demand ischemia secondary to frequent PVCs. -TSH 2.4 -cardiology consulted -continue tele monitoring - resolved (2) CHF (congestive heart failure): Code(s): I50.9 - Heart failure, unspecified Status: Acute Assessment and Plan: - echo showing severely reduced systolic dysfunction with an EF of 20-25%, severe pulmonary hypertension, and grade 1 diastolic dysfunction. -Cardiology recs -cardiac cath pending on 05/19 - Will likely need cardiac rehab on discharge (3) Pulmonary hypertension: Code(s): I27.20 - Pulmonary hypertension, unspecified Status: Acute (4) Orthopnea: Code(s): R06.01 - Orthopnea Status: Acute Assessment and Plan: -CXR: Bibasilar airspace opacities, consistent with atelectasis versus pneumonia. Small pleural effusions. -CT abd/pelvis: Small left and heuxz-vh-unjbvoif size right pleural effusions with mild passive atelectasis. Cardiomegaly with mild pulmonary edema. Moderate atrophy of the kidneys. There is high attenuation material in multiple segments of large bowel, felt to represent ingested contents rather than contrast extravasation.?No definite acute findings of the abdomen or pelvis. -Initial BNP: >30,000 and exam shows crackles in L lung base -given Lasix 40 IVP x1 in ER -started on oral Lasix BID -ECHO showing severely reduced systolic dysfunction with an EF of 20-25%, severe pulmonary hypertension, and grade 1 diastolic dysfunction. -cardiology following -monitor I&Os and daily weights - resolved (5) Hypertension: Code(s): I10 - Essential (primary) hypertension Status: Chronic Assessment and Plan: -chronic, stable. continue medications per plans above (6) Chronic kidney disease (CKD), stage III (moderate): Code(s): N18.30 - Chronic kidney disease, stage 3 unspecified Status: Chronic Assessment and Plan: do not have baseline for comparison stable (7) Anemia: Code(s): D64.9 - Anemia, unspecified Status: Acute Assessment and Plan: -no previous hx -hemoglobin 11.0 today -anemia workup: TSH normal. - ferritin, iron, TIBC normal - B12, folic acid normal -Continue to monitor. (8) Hypokalemia: Code(s): E87.6 - Hypokalemia Status: Acute Assessment and Plan: probably 2/2 to diuretic use. replacing (9) Transaminitis: Code(s): R74.01 - Elevation of levels of liver transaminase levels Status: Acute Assessment and Plan: improving, possibly 2/2 to congestion. cont to trend Plan Ms. Celi Robison is a pleasant 87-year-old white female with a past medical history anxiety glaucoma, chronic diarrhea, CKD, HTN, hyperlipidemia who presents with palpitations. Admitted on 05/16/2023 FEN: Saline lock IV. NPO for cardiac catheterization and then heart healthy diet. GI prophylaxis: None indicated DVT prophylaxis: Lovenox Lines: Peripheral IV Code Status: Full code Dispo: Stable. May downgrade or discharge to home when cleared by Cardiology. Time Spent With Patient Time with patient: 25 - 35 minutes Subjective Date/time seen: 05/19/23 07:18 Interval history: No acute overnight events. She denies complaints. She is amenable to ca
[2023-05-19 07:56] LABS: Hematocrit 34.9 % (37.0-47.0); Hemoglobin 11.2 g/dL (12.0-15.0); Mean Corpuscular HGB Conc 32.1 g/dl (32-36); Mean Corpuscular Hemoglobin 30.9 pg (26-34); Mean Corpuscular Volume 96.4 fl (80-100); Mean Platelet Volume 9.8 fl (7.4-10.4); Platelet Count Result 235 k/mm3 (150-375); Red Blood Count 3.62 M/mm3 (4.2-5.4); Red Cell Distribution Width 15.1 % (11.5-14.5); White Blood Count 8.1 K/mm3 (4.5-10.0)
[2023-05-19 08:14] LABS: Alanine Aminotransferase 31 U/L (6-35); Albumin Level 3.5 g/dL (3.5-5.1); Alkaline Phosphatase 92 U/L (38-126); Anion Gap 5 mmol/L (8-16); Aspartate Amino Transferase 24 U/L (14-36); Bilirubin,Total 0.6 mg/dL (0.2-1.3); Blood Urea Nitrogen 42 mg/dL (7-17); Calcium 8.9 mg/dL (8.4-10.2); Carbon Dioxide 28 mmol/L (22-30); Chloride 104 mmol/L (98-107); Estimated Glomerular Filt Rate 47; Glucose 98 mg/dL (65-110); Magnesium 2.1 mg/dL (1.6-2.3); Potassium 3.5 mmol/L (3.4-5.0); Sodium 137 mmol/L (137-145)
[2023-05-19] MEDS: DULoxetine HCL 30 MG CAPSULE.DR PO (09:03)
[2023-05-19] MEDS: TIMOLOL MALEATE 0.5% OP SOLN 5 ML BOTTLE 1 DROP EACH EYE ×2 (09:05→21:15)
[2023-05-19] MEDS: METOPROLOL SUCCINATE EXT REL 12.5 MG TABCR PO (09:05)
[2023-05-19] MEDS: THERAPEUTIC MULTIVITAMINS/MINERALS TAB (*BKC) 1 TABLET PO (09:05)
[2023-05-19] MEDS: ENOXAPARIN 30 MG/0.3 ML SYRINGE SUB-Q (09:15)
--- NOTE | 2023-05-19 13:13 | WPDMODSED ---
Moderate Sedation Note-Pt Data Patient Data Diagnosis: Heart failure with reduced ejection fraction Present Complaint: Heart failure with reduced ejection fraction Procedure to be performed/Plan: Coronary angiography, left heart cath, +/- PCI Allergies Allergy/AdvReac Type Severity Reaction Status Date / Time No Known Allergies Allergy Verified 04/16/23 13:14 Home Medications Medication Instructions Recorded Confirmed Type timolol maleate 0.5 % eye drops 1 drp ophthalmic (eye) BID 08/12/20 05/16/23 History loperamide 2 mg tablet 2 mg PO Q6H PRN Diarrhea 04/16/23 05/16/23 History (Anti-Diarrheal (loperamide)) duloxetine 30 mg capsule,delayed 30 mg PO DAILY #90 caps 05/10/23 05/16/23 Rx release (Cymbalta) acetaminophen 500 mg tablet 500 mg PO Q6H PRN pain 05/16/23 05/16/23 History lisinopril 10 1 tablet PO DAILY 05/16/23 05/16/23 History mg-hydrochlorothiazide 12.5 mg tablet multivitamin with minerals-folic 1 tablet PO DAILY 05/16/23 05/16/23 History acid 0.4 mg tablet Current Medications: Active Medications Acetaminophen (Acetaminophen 500 Mg Tablet) 500 mg PO Q6H PRN PRN Reason: pain Duloxetine HCl (Duloxetine Hcl 30 Mg Capsule.Dr) 30 mg PO DAILY [facility] Last Admin: 05/19/23 09:03 Dose: 30 mg Empagliflozin (Empagliflozin 10 Mg Tablet) 10 mg PO DAILY [facility] Last Admin: 05/19/23 09:07 Dose: Not Given Enoxaparin Sodium (Enoxaparin 30 Mg/0.3 Ml Syringe) 30 mg SUB-Q DAILY [facility] Last Admin: 05/19/23 09:15 Dose: 30 mg Furosemide (Furosemide 40 Mg Tablet) 40 mg PO DAILY [facility] Last Admin: 05/19/23 09:07 Dose: Not Given Sodium Chloride (Normal Saline Iv) 1,000 mls @ 125 mls/hr IV CONT .Q8H ONE Stop: 05/19/23 21:10 Loperamide HCl (Loperamide Hcl 2 Mg Capsule) 2 mg PO Q6H PRN PRN Reason: Diarrhea Melatonin (Melatonin 3 Mg Tablet) 3 mg PO HS [facility] Last Admin: 05/18/23 21:12 Dose: 3 mg Metoprolol Succinate (Metoprolol Succinate Ext Rel 12.5 Mg Tabcr) 12.5 mg PO QAM [facility] Last Admin: 05/19/23 09:05 Dose: 12.5 mg Multivitamins/Calcium (Therapeutic Multivitamins/Minerals Tab (*Bkc)) 1 tablet PO DAILY [facility] Last Admin: 05/19/23 09:05 Dose: 1 tablet Sacubitril/Valsartan (Sacubitril/Valsartan 24-26 Mg Tablet) 1 tab PO Q12HR [facility] Spironolactone (Spironolactone 12.5 Mg Tablet) 12.5 mg PO QAM [facility] Last Admin: 05/19/23 09:08 Dose: Not Given Timolol Maleate (Timolol Maleate 0.5% Op Soln 5 Ml Bottle) 1 drop EACH EYE Q12HR [facility] Last Admin: 05/19/23 09:05 Dose: 1 drop Sedation/Anesthesia: No previous sedation/anesthesia problems (including family history). [facility] Past Medical History Medical History Anxiety CHF (congestive heart failure) Chronic diarrhea Chronic kidney disease (CKD), stage III (moderate) Former smoker Glaucoma Hammertoe, bilateral Hyperlipidemia Hypertension Presence of intraocular lens prism lens Pulmonary hypertension Surgical History Surgical History History of cataract extraction History of dilation and curettage x2 History of lumbar surgery spinal stenosis correction History of tonsillectomy Family History Family History Mother Diabetes mellitus, Onset Age: 72 Hypertension, Onset Age: 72 Family history of cardiovascular disease, Onset Age: 72 Father Hypertension, Onset Age: 92 Family history of Parkinson's disease, Onset Age: 92 Social History Social History Smoking packs per day: 1.5 Smoking cigarettes per day: 30.0 Years smoked: 13 Smoking pack-years: 19.50 Smoking status: Former smoker Smoking end date: 04/12/1966 Alcohol intake: never Substance use: never Substance use type: does not use Do You Feel Safe in your Home?: Yes Lack of Transportation: No Lack of Food: Never True
--- NOTE | 2023-05-19 13:22 | WPDCARDPROC ---
Cardiac Cath Procedure Note Date of procedure:: 05/19/23 Performing physician:: CATHETERIZATION LABORATORY REPORT Procedure Date: 05/19/2022 Plate Gauger: Pillo Green M.D., [facility]? Referring Physician: Pillo Green M.D. ? Anesthesia: Versed and Fentanyl were ordered and given in my presence at 12:12, procedure ended at 13:07. Supervision of nurse monitored moderate sedation with Versed and Fentanyl was provided for 55 minutes. Total of Versed 1mg and Fentanyl 25mcg were administered by the Filament Coil Winder RN Liyah Ordoñez. Pre-op Diagnosis: Coronary artery disease Post-op Diagnosis: 1. Severe multivessel coronary artery disease 2. Left ventricular end-diastolic pressure of 18mmHg Procedure(s): 1. Moderate sedation 2. Ultrasound-guided access of the right common femoral artery 3. Coronary angiography 4. Left heart cath Access Site: Right common femoral artery Brief History and Clinical Indications: Patient is an 87 year old female who is referred for cardiac catheterization for ischemic evaluation for new diagnosis of heart failure with reduced ejection fraction. All risks, benefits and alternatives to left heart catheterization with or without percutaneous coronary intervention was discussed at length with the patient. Risk of complications including but not limited to bleeding, infection, arrhythmia, stroke, worsening kidney function, blood loss, groin hematoma, limb loss, emergency coronary artery bypass grafting, and even were discussed with the patient and all questions were answered. The patient understood and wished to proceed. Time out called, patient name, date of , medical record number, allergies, procedure performed, identify Plate Gauger, patient and staff member concurred with accurate data, procedure carried on. Findings: LEFT HEART CATHETERIZATION FINDINGS: 1. Left main: The left main coronary artery is widely patent without any significant obstructive disease. 2. Left anterior descending: The proximal LAD has diffuse mild disease. The mid portion of the LAD has a significant 99% stenosis followed by severe diffuse disease in the remainder of the LAD. 3. Left circumflex: The proximal-mid portion of the left circumflex has diffuse mild-moderate disease. OM vessel has significant ostial to proximal disease of 80%. 4. Right coronary artery: The RCA is the dominant vessel. The proximal to mid portion of the RCA has diffuse disease of up to moderate stenosis. The RCA is [employer]STRU[employer]GER in the mid portion. There are [id number] collaterals filling the distal RCA territory. 5. Left ventricle: A. End-diastolic pressure 18 mmHg. B. LV gram deferred. C. No significant gradient across aortic valve on catheter pullback. Description of Procedure: Informed consent signed and placed in the chart. Patient transferred to label printer room. Prepped and draped in usual sterile fashion. 2% lidocaine in right groin area. Micropuncture needle used to access right common femoral artery with Seldinger technique under fluoroscopic and ultrasound guidance. J wire advanced, micropuncture cannula placed. Right iliofemoral angiogram performed, access confirmed and micropuncture cannula exchanged for 5-FR sheath. Initially attempted to engage the left main coronary artery with 5F FL 4 diagnostic catheter, but patient has significant iliac and distal aorta tortuosity, which made it difficult to manipulate diagnostic catheter. Therefore, we exchanged out the 5F 11cm sheath with a 5F 45cm sheath. Attempted to engage the left main with a 5F FL 3.5 diagnostic catheter, 5F FL 4 diagnostic catheter, 5F FL5 diagnostic catheter but unable to engage. 5F FR 4 diagnostic catheter engaged Right Coronary Artery. We were then able to successfully engage the left main with a 5F CLS 3.5 catheter. Multiple orthogonal angiogram obtained and reviewed 5F Pigtail diagnostic catheter crossed aortic valve to obtain LVEDP, LV angiogram deferred. Hemost
--- NOTE | 2023-05-19 14:19 | PM.PNCARD ---
Progress Note: A&P Assessment and Plan (1) Acute HFrEF (heart failure with reduced ejection fraction): Code(s): I50.21 - Acute systolic (congestive) heart failure Status: Acute Assessment and Plan: Presented with 3 months of progressive dyspnea on exertion and orthopnea. Echo showed severely reduced LV systolic function, EF 20-25%.? She also has severe pHTN.? These are new diagnoses. Initiated on heart failure GDMT with Entresto, Spironolactone, Metoprolol, Jardiance. Will continue to uptitrate heart failure GDMT as tolerated. Continue with Entresto 24/26mg BID. Continue with Jardiance 10mg once daily. Will increase Spironolactone to 25mg once daily. Will increase Toprol to 25mg once daily. Discussed Life Vest with the patient, she will think about it and let us know. Continue PO Lasix. LVEDP 18mmHg during cath. (2) Coronary artery disease: Code(s): I25.10 - Atherosclerotic heart disease of enterprise coronary artery without angina pectoris Status: Acute Assessment and Plan: Cardiac catheterization shows severe multivessel coronary artery disease with HANGERSMITH of the mid RCA, severe diffuse disease of the mid to distal LAD, severe ostial-proximal disease in OM branch. LAD disease is not amenable to PCI given the severe diffuse nature of the disease into the distal and apical LAD, so no good distal landing zones for stents. Can consider CABG given the severe multivessel coronary artery disease, but I am not sure if the LAD has any good target zone for a bypass graft. Given her advanced age, CABG may be very difficult as well, if she were to even be a candidate for it. At this time, will aggressively treat medically. Start ASA 81mg once daily. Start high-intensity statin. Will need close outpatient follow-up. (3) Chronic kidney disease (CKD), stage III (moderate): Code(s): N18.30 - Chronic kidney disease, stage 3 unspecified Status: Chronic Assessment and Plan: Closely monitor renal function. Plan Recommendations and plan discussed with patient, patient's daughter, Hospitalist. Will arrange for close outpatient follow up in our office. Subjective Date/time seen: 05/19/23 14:19 Interval history: Reason for visit: Acute heart failure with reduced ejection fraction HPI: Celi Robison is an 87 year old female with a history of glaucoma, hypertension, and osteoarthritis.? This is a patient to comes to the hospital with a chief complaint of palpitations.? She has been experiencing intermittent palpitations over the past several months.? She states that the palpitations are more bothersome when she lays down.? For about 3 months, she has also been experiencing dyspnea with exertion and orthopnea.? Her telemetry demonstrates sinus rhythm with frequent PAC's.? She states that when EMS connected her to their monitor she was told she was in atrial fibrillation.? However, no atrial arrhythmias seen here on telemetry or ECG.? She denies feeling any palpitations since hospital admission.? She is currently free of any complaints and is lying comfortably in bed.? Date of service 05/18: Patient is feeling better today.? She states that she was able to sleep last night while lying nearly flat.? She does not have any shortness of breath, chest pain, palpitations. Date of service 05/19: Denies chest pain, shortness of breath today. Cardiac cath today. Review of Systems Review of Systems: All systems reviewed & are unremarkable except as noted in HPI and below (HPI) Exam Const: General: comfortable and no acute distress Other: Elderly fraile female HENMT: Mouth: Yes moist mucous membranes Eyes: General: appearance normal, both eyes and all related structures Sclera: sclerae normal Neck: Neck: supple Resp: Effort & Inspection: normal respiratory effort Cardio: Rate: regular rate Rhythm: regular rhythm and abnormal rhythm with ectopic beats Skin: General skin exam: normal color Neuro: Speech:
[2023-05-19] MEDS: SODIUM CHLORIDE 0.9% IV 1,000 ML 125 ML IV CONT (16:16)
[2023-05-19] MEDS: MELATONIN 3 MG TABLET PO (21:14)
[2023-05-20] VITALS (7 sets, daily range): BP systolic 136–146; BP diastolic 88–89; PULSE 58–93; RESP 16–24; TEMP 36.3–36.4; O2SAT 96–100
[2023-05-20 05:56] LABS: Basophils Absolute Auto 0.1 K/mm3 (0.0-0.1); Basophils Percent Auto 0.7 % (0.2-1.2); Eosinophils Absolute Auto 0.2 K/mm3 (0-0.3); Eosinophils Percent Auto 2.3 % (0-4.4); Hematocrit 32.4 % (37.0-47.0); Hemoglobin 10.3 g/dL (12.0-15.0); Immature Granulocyte Absolute 0.03 K/mm3 (0.00-0.031); Immature Granulocyte Percent A 0.4 % (0-0.5); Lymphocytes Absolute Auto 1.01 K/mm3 (0.9-3.2); Lymphocytes Percent Auto 12.2 % (18.3-44.2); Mean Corpuscular HGB Conc 31.8 g/dl (32-36); Mean Corpuscular Hemoglobin 30.9 pg (26-34); Mean Corpuscular Volume 97.3 fl (80-100); Mean Platelet Volume 10.2 fl (7.4-10.4); Monocytes Absolute Auto 0.8 K/mm3 (0.1-0.6); Monocytes Percent Auto 9.5 % (2.6-8.5); Neutrophils Absolute Auto 6.2 K/mm3 (1.3-6.7); Neutrophils Percent Auto 74.9 % (45.5-73.1); Platelet Count Result 214 k/mm3 (150-375); Red Blood Count 3.33 M/mm3 (4.2-5.4); Red Cell Distribution Width 15.3 % (11.5-14.5); White Blood Count 8.3 K/mm3 (4.5-10.0)
[2023-05-20 06:16] LABS: Alanine Aminotransferase 27 U/L (6-35); Albumin Level 3.3 g/dL (3.5-5.1); Alkaline Phosphatase 89 U/L (38-126); Aspartate Amino Transferase 22 U/L (14-36); Bilirubin,Total 0.6 mg/dL (0.2-1.3); Blood Urea Nitrogen 35 mg/dL (7-17); Calcium 8.8 mg/dL (8.4-10.2); Carbon Dioxide 23 mmol/L (22-30); Chloride 109 mmol/L (98-107); Estimated Glomerular Filt Rate 59; Glucose 92 mg/dL (65-110); Magnesium 2.2 mg/dL (1.6-2.3); Potassium 3.4 mmol/L (3.4-5.0)
[2023-05-20 06:24] LABS: Anion Gap 8 mmol/L (8-16); Sodium 140 mmol/L (137-145)
--- NOTE | 2023-05-20 09:09 | PM.DS ---
DS: Admitting Diagnosis Discharge Date May 20, 2023 Admitting Diagnosis Palpitations DS: Discharge Diagnosis Discharge Diagnosis (1) Acute HFrEF (heart failure with reduced ejection fraction): Code(s): I50.21 - Acute systolic (congestive) heart failure Status: Acute (2) Coronary artery disease: Code(s): I25.10 - Atherosclerotic heart disease of [place] coronary artery without angina pectoris Status: Acute DS: Summary Hospital Course Hospital Course: A 87-year-old white female with a past medical history anxiety, glaucoma, chronic diarrhea, CKD, hypertension, hyperlipidemia presents with palpitations. New diagnoses include heart failure reduced ejection fraction and occlusive multivessel coronary artery disease. She was found to have a sinus tachycardia. Troponin peaked at 0.09. A surface echocardiogram was performed which revealed a severely reduced EF at 20-25% along with grade 1 diastolic dysfunction. Other findings as follows: Left Ventricle ? Left ventricular chamber dimension is moderately enlarged. ? Left ventricular systolic function is severely reduced, estimated at 20-25%. ? The left ventricular diastolic function is grade I diastolic dysfunction. Right Ventricle ? Right ventricular chamber dimension is normal. Left Atria ? Left atrial chamber dimension is severely enlarged. Right Atria ? Right atrial chamber dimension is normal. Aortic Valve ? The aortic valve is trileaflet. ? There is mild aortic valve sclerosis. ? There is mild aortic valve regurgitation. Pulmonic Valve ? The pulmonic valve is normal. ? There is mild pulmonic regurgitation. Mitral Valve ? The mitral valve has normal leaflets. ? There is mild to moderate mitral valve regurgitation. ? The mitral valve annulus is moderately calcified. Tricuspid Valve ? The tricuspid valve leaflets are normal. ? There is mild tricuspid valve regurgitation. ? Severe pulmonary hypertension, estimated pulmonary arterial systolic pressure is 71 mmHg. Pericardium/Pleural ? The pericardium appears normal. Aorta ? The aortic root size at the sinus of Valsalva is normal. She then underwent left heart catheterization with the following findings: 1. Left main: The left main coronary artery is widely patent without any significant obstructive disease. 2. Left anterior descending: The proximal LAD has diffuse mild disease. The mid portion of the LAD has a significant 99% stenosis followed by severe diffuse disease in the remainder of the LAD. 3. Left circumflex: The proximal-mid portion of the left circumflex has diffuse mild-moderate disease. OM vessel has significant ostial to proximal disease of 80%. 4. Right coronary artery: The RCA is the dominant vessel. The proximal to mid portion of the RCA has diffuse disease of up to moderate stenosis. The RCA is [employer] in the mid portion. There are [id number] collaterals filling the distal RCA territory. 5. Left ventricle: A. End-diastolic pressure 18 mmHg. B. LV gram deferred. C. No significant gradient across aortic valve on catheter pullback. ----- Given the patient's catheterization findings, age and personal preference, discussion held with Cardiology and for now aggressive medical therapy has been elected. She will follow-up with Dr. Green in the outpatient setting to continue management and discussion on further therapies. The patient declined LifeVest at this time as well. Her lisinopril hydrochlorothiazide has been stopped and in replace of that we have started aspirin 81 mg daily, atorvastatin 80 mg daily, Jardiance 10 mg daily, furosemide 40 mg daily, metoprolol succinate 25 mg daily, Entresto 24-261 tab twice daily, spironolactone 25 mg daily. The patient had a transient elevation of liver enzymes. This is likely due to hepatic congestion. The patient was full code during her admission.. Time Spent with Patient Time attestation: Total time spent providing and/or
--- NOTE | 2023-05-20 09:40 | PM.PNCARD ---
Progress Note: A&P Assessment and Plan (1) Acute HFrEF (heart failure with reduced ejection fraction): Code(s): I50.21 - Acute systolic (congestive) heart failure Status: Acute Assessment and Plan: Presented with 3 months of progressive dyspnea on exertion and orthopnea. Echo showed severely reduced LV systolic function, EF 20-25%.? She also has severe pHTN.? These are new diagnoses. Initiated on heart failure GDMT with Entresto, Spironolactone, Metoprolol, Jardiance. Will continue to uptitrate heart failure GDMT as tolerated. Continue with Entresto 24/26mg BID. Continue with Jardiance 10mg once daily. Increased Spironolactone to 25mg once daily. Increased Toprol to 25mg once daily. Discussed Life Vest with the patient, however, patient does not wish for it at this time. Continue PO Lasix. LVEDP 18mmHg during cath. (2) Coronary artery disease: Code(s): I25.10 - Atherosclerotic heart disease of [place] coronary artery without angina pectoris Status: Acute Assessment and Plan: Cardiac catheterization shows severe multivessel coronary artery disease with [employer] of the mid RCA, severe diffuse disease of the mid to distal LAD, severe ostial-proximal disease in OM branch. LAD disease is not amenable to PCI given the severe diffuse nature of the disease into the distal and apical LAD, so no good distal landing zones for stents. Can consider CABG given the severe multivessel coronary artery disease, but I am not sure if the LAD has any good target zone for a bypass graft. Given her advanced age, CABG may be very difficult as well, if she were to even be a candidate for it. At this time, will aggressively treat medically. Started ASA 81mg once daily. Started high-intensity statin. Will need close outpatient follow-up. (3) Chronic kidney disease (CKD), stage III (moderate): Code(s): N18.30 - Chronic kidney disease, stage 3 unspecified Status: Chronic Assessment and Plan: Closely monitor renal function. Plan Recommendations and plan discussed with patient and Hospitalist. Will arrange for close outpatient follow up in our office. Okay to discharge home from my standpoint. Subjective Date/time seen: 05/20/23 09:40 Interval history: Reason for visit: Acute heart failure with reduced ejection fraction HPI: Celi Robison is an 87 year old female with a history of glaucoma, hypertension, and osteoarthritis.? This is a patient to comes to the hospital with a chief complaint of palpitations.? She has been experiencing intermittent palpitations over the past several months.? She states that the palpitations are more bothersome when she lays down.? For about 3 months, she has also been experiencing dyspnea with exertion and orthopnea.? Her telemetry demonstrates sinus rhythm with frequent PAC's.? She states that when EMS connected her to their monitor she was told she was in atrial fibrillation.? However, no atrial arrhythmias seen here on telemetry or ECG.? She denies feeling any palpitations since hospital admission.? She is currently free of any complaints and is lying comfortably in bed.? Date of service 05/18: Patient is feeling better today.? She states that she was able to sleep last night while lying nearly flat.? She does not have any shortness of breath, chest pain, palpitations. Date of service 05/19: Denies chest pain, shortness of breath today. Cardiac cath today. Date of service 05/20: Feeling well this morning, no complaints. Review of Systems Review of Systems: All systems reviewed & are unremarkable except as noted in HPI and below (HPI) Exam Const: General: comfortable and no acute distress Other: Elderly frail female HENMT: Mouth: Yes moist mucous membranes Eyes: General: appearance normal, both eyes and all related structures Sclera: sclerae normal Neck: Neck: supple Resp: Effort & Inspection: normal respiratory effort Cardio: Rate: regular rate Rhythm: regular rhythm
[2023-05-20] MEDS: ASPIRIN 81 MG ENTERIC TABLET PO (10:16)
[2023-05-20] MEDS: ATORVASTATIN 40 MG TABLET 80 MG PO (10:16)
[2023-05-20] MEDS: EMPAGLIFLOZIN 10 MG TABLET PO (10:17)
[2023-05-20] MEDS: ENOXAPARIN 30 MG/0.3 ML SYRINGE SUB-Q (10:17)
[2023-05-20] MEDS: DULoxetine HCL 30 MG CAPSULE.DR PO (10:17)
[2023-05-20] MEDS: FUROSEMIDE 40 MG TABLET PO (10:18)
[2023-05-20] MEDS: THERAPEUTIC MULTIVITAMINS/MINERALS TAB (*BKC) 1 TABLET PO (10:18)
[2023-05-20] MEDS: SPIRONOLACTONE 25 MG TABLET PO (10:18)
[2023-05-20] MEDS: SACUBITRIL/VALSARTAN 24-26 MG TABLET 1 TAB PO (10:18)
[2023-05-20] MEDS: METOPROLOL SUCCINATE EXT REL 25 MG TABCR PO (10:18)
[2023-05-20] MEDS: TIMOLOL MALEATE 0.5% OP SOLN 5 ML BOTTLE 1 DROP EACH EYE (10:18)
== END 2023-05-20 12:24 | disposition home health service (06) | DRG 286 ==
LOC: ANHED 15:34 → ANHIMU 15:38
PROVIDERS: Internal Medicine; Nurse Practitioner; Student in an Organized Health Care Education/Training Program; Admitting Provider Internal Medicine; Emergency Provider Emergency Medicine; PCP Family Medicine; Visit Provider General Practice
PROC: 4A023N7 Measurement of Cardiac Sampling and Pressure, Left Heart, Percutaneous Approach (ICD-10-PCS; CPT 93452; principal; 2023-05-19 13:30)
DX: I25.10 Atherosclerotic heart disease of native coronary artery without angina pectoris (principal); I13.0 Hypertensive heart and chronic kidney disease with heart failure and stage 1 through stage 4 chronic kidney disease, or unspecified chronic kidney disease; I50.21 Acute systolic (congestive) heart failure; N18.30 Chronic kidney disease, stage 3 unspecified; D50.9 Iron deficiency anemia, unspecified; E78.5 Hyperlipidemia, unspecified; E87.6 Hypokalemia; F41.9 Anxiety disorder, unspecified; H40.9 Unspecified glaucoma; I27.20 Pulmonary hypertension, unspecified; K52.9 Noninfective gastroenteritis and colitis, unspecified; M19.90 Unspecified osteoarthritis, unspecified site; R74.01 Elevation of levels of liver transaminase levels; Z87.891 Personal history of nicotine dependence; Z98.49 Cataract extraction status, unspecified eye; Z96.1 Presence of intraocular lens; Z11.52 Encounter for screening for COVID-19
CPT/HCPCS: 36415; 70450; 71045; 71260; 74177; 80048; 80053; 81001; 82306; 82607; 82728; 82746; 83540; 83550; 83735; 83880; 84443; 84484; 85025; 85027; 85610; 85730; 87637; 93005; 93458; 96372; 96374; 96375; 99285; A9270; C1769; C1887; C1894; C8929; G0378; J0461; J1644; J1650; J1940; J2250; J3010; J7030; J7040; Q9957; Q9967

== ENCOUNTER 2023-06-03 11:58 | Outpatient (NON) | payer MEDICARE, SELFPAY ==
[2023-06-03 13:38] LABS: Toxigenic C. Diff NEGATIVE (NEGATIVE)
== END 2023-06-03 11:59 | disposition home or self-care (01) ==
LOC: ANHLAB 11:59
PROVIDERS: PCP Family Medicine; Visit Provider Nurse Practitioner Family
DX: R19.7 Diarrhea, unspecified (principal)
CPT/HCPCS: 87045; 87427; 87449; 87493

== ENCOUNTER 2024-01-28 16:04 | Outpatient (CLI) | payer MEDICARE, SELFPAY ==
[2024-01-28 18:12] LABS: Monoscreen Negative (Negative)
[2024-01-28 18:19] LABS: Negative Monotest Control Negative (Negative); Positive Monotest Control Positive (Positive)
[2024-01-28 18:57] LABS: Hepatitis B Surface Antigen Negative (Negative)
[2024-01-28 19:05] LABS: HAV RESULT Negative (Negative); Hepatitis B Core IgM Result Negative (Negative)
[2024-01-28 19:15] LABS: Hepatitis C Virus Antibody Negative (Negative)
[2024-02-02 07:42] LABS: Reference Lab Test Name Autoimmune Hepatitis
== END 2024-01-28 16:05 | disposition home or self-care (01) ==
LOC: ANHGOSHLAB 16:05
PROVIDERS: PCP Family Medicine; Visit Provider Nurse Practitioner Family
DX: R53.83 Other fatigue (principal); R74.8 Abnormal levels of other serum enzymes; R74.01 Elevation of levels of liver transaminase levels
CPT/HCPCS: 36415; 80074; 86308

== ENCOUNTER 2024-02-02 14:47 | Emergency (ER) | payer MEDICARE, SELFPAY ==
--- NOTE | 2024-02-02 14:50 | ED.FEMALEGU ---
HPI - Female Genitourinary General Chief complaint: Urogenital-Female Stated complaint: possible UTI Time Seen by Provider: 02/02/24 15:11 Source: patient and RN notes reviewed Mode of arrival: ambulatory Limitations: no limitations History of Present Illness HPI Narrative: 88-year-old female presents with concern for pain with urination, confusion and hallucinations. Reports symptoms started 2 days ago. Reports she has been urinating and night which is unusual. She denies fevers. She denies abdominal pain or back pain. Denies nausea vomiting. MD elicited complaint: UTI Related Data Home Medications Medication Instructions Recorded Confirmed timolol maleate 0.5 % eye drops 1 drp ophthalmic (eye) BID 08/12/20 02/02/24 loperamide 2 mg tablet 2 mg PO Q6H PRN Diarrhea 04/16/23 02/02/24 (Anti-Diarrheal (loperamide)) acetaminophen 500 mg tablet 500 mg PO Q6H PRN pain 05/16/23 02/02/24 multivitamin with minerals-folic 1 tablet PO DAILY 05/16/23 02/02/24 acid 0.4 mg tablet Allergies Allergy/AdvReac Type Severity Reaction Status Date / Time No Known Allergies Allergy Verified 02/02/24 14:58 Review of Systems Review of Systems: CONSTITUTIONAL: Denies malaise, chills, sweats, or fever. CARDIOVASCULAR: Denies chest pain, palpitations, or edema. RESPIRATORY: Denies cough or dyspnea. GASTROINTESTINAL: Denies abdominal pain, nausea, vomiting, diarrhea GENITOURINARY: Reports dysuria, frequency. Denies urgency, suprapubic pressure. Denies flank pain or hematuria. SKIN: Denies rash or itching. MUSCULOSKELETAL: Denies back pain or myalgia. All systems reviewed & are unremarkable except as noted in HPI and below PMFSH Past Medical History Medical History (Updated 02/02/24 @ 15:16 by Hellen Shelton NP) Anxiety CHF (congestive heart failure) EF 25% Chronic diarrhea Chronic kidney disease (CKD), stage III (moderate) Former smoker Glaucoma [place], bilateral Hyperlipidemia Hypertension Presence of intraocular lens prism lens Pulmonary hypertension Surgical History Surgical History History of cataract extraction History of dilation and curettage x2 History of lumbar surgery spinal stenosis correction History of tonsillectomy Family History Family History Mother Diabetes mellitus, Onset Age: 72 Hypertension, Onset Age: 72 Family history of cardiovascular disease, Onset Age: 72 Father Hypertension, Onset Age: 92 Family history of Parkinson's disease, Onset Age: 92 Social History Social History Smoking packs per day: 1.5 Smoking cigarettes per day: 30.0 Years smoked: 13 Smoking pack-years: 19.50 Smoking status: Former smoker Smoking end date: 04/12/1966 Alcohol intake: never Substance use: never Substance use type: does not use Do You Feel Safe in your Home?: Yes Lack of Transportation: No Lack of Food: Never True Current Housing: I Have Housing Concerned About Future Housing: No Difficulty Paying Gas/Electric Bills: No Difficulty Paying for Meds: No Currently Unemployed: No Education: High School Diploma/GED Difficulty w/ Childcare or Family Care: No Living arrangements: with family Spiritual care concerns: No Comments At time of signature, agree with nursing past medical, surgical, social and family history. There is no relevant family history pertinent to the presenting complaint Exam Narrative: GENERAL: Well-appearing, well-nourished, and in no acute distress. HEAD: Normocephalic. EYES: PERRLA, conjunctivae clear. NECK: Supple. No lymphadenopathy CHEST: Clear to auscultation. No respiratory distress. HEART: Regular rate and rhythm. SKIN: Warm, dry, no rash. NEURO: Alert and oriented x3. PSYCH: Normal mood and affect Course Cours
[2024-02-02 14:58] VITALS: BP 127/77; PULSE 86; RESP 16; TEMP 37.1; O2SAT 100
[2024-02-02 14:59] VITALS: BP 127/77; PULSE 86; RESP 16; TEMP 37.1; O2SAT 100
[2024-02-02 15:10] LABS: EDUAAPPEAR Cloudy; EDUABILI Negative (Negative); EDUABLOOD 1+ (Negative); EDUACOLOR1 Yellow; EDUAGLUCOSE Negative (Negative); EDUAKETONE Negative (Negative); EDUALEUKO 3+ (Negative); EDUANITRATE Negative (Negative); EDUAPH 6.5; EDUAPROTEIN 2+ (Negative); EDUAUROBILI 0.2
== END 2024-02-02 15:21 | disposition home or self-care (01) ==
PROVIDERS: Emergency Provider Nurse Practitioner; PCP Family Medicine
DX: N39.0 Urinary tract infection, site not specified (principal); I13.0 Hypertensive heart and chronic kidney disease with heart failure and stage 1 through stage 4 chronic kidney disease, or unspecified chronic kidney disease; I50.9 Heart failure, unspecified; N18.30 Chronic kidney disease, stage 3 unspecified; Z79.899 Other long term (current) drug therapy; E78.5 Hyperlipidemia, unspecified; Z87.891 Personal history of nicotine dependence
CPT/HCPCS: 81003; 87086; 99213; G0463

== ENCOUNTER 2024-02-07 10:19 | Outpatient (CLI) | payer MEDICARE, SELFPAY ==
--- NOTE | ~2024-02-07 | US_ITS ---
COMPLETE ABDOMINAL ULTRASOUND Ordering provider: ALINA Sebastian History: . R74.8 - Abnormal levels of other serum enzymes . Comparison: None. FINDINGS: LIVER: Normal size and echotexture. The liver measures 13.7 cm. No focal hepatic lesions or perihepat ic fluid collections are identified. Normal portal vein flow. GALLBLADDER: Unremarkable. No evidence for stones, sludge, gallbladder wall thickening or pericholecy stic fluid collections. A negative sonographic Acuña's sign was noted. BILIARY DUCTS: No evidence for intra or extrahepatic biliary dilation. Common bile duct measures 4 mm in diameter which is within normal limits. PANCREAS: Not well demonstrated. SPLEEN: Normal size, echotexture and contour and measures 8.3 cm in length. KIDNEYS: Right atrophic, echogenic and measures 7.2x 3.5x 4.1 cm in length. The left is atrophic and measures 7.6x 4.4x 3.5 cm in length. There is no evidence for hydronephrosis, solid renal mass, renal calculi or perinephric fluid collections bilaterally. Multiple cysts in the right kidney with the la rgest measures 1.2 x 1.2 x 1 cm. UPPER ABDOMINAL AORTA: Normal in caliber. Calcifications are seen in the wall. Proximal aorta measures 1.9 cm. Mid aorta measures 1.7 cm. IVC: Patent. FREE FLUID: Bilateral pleural effusion. IMPRESSION: Atrophic echogenic kidneys. Bilateral pleural effusion. Multiple right kidney cysts. Otherwise, Unrem arkable complete ultrasound of the abdomen. Reviewed, dictated and finalized at location A. IMPRESSION: Atrophic echogenic kidneys. Bilateral pleural effusion. Multiple right kidney c ysts. Otherwise, Unremarkable complete ultrasound of the abdomen.
== END 2024-02-07 10:20 | disposition home or self-care (01) ==
LOC: GOSHIMG 10:20
PROVIDERS: PCP Family Medicine; Visit Provider Nurse Practitioner Family
DX: R74.8 Abnormal levels of other serum enzymes (principal); J90 Pleural effusion, not elsewhere classified
CPT/HCPCS: 76700